=== PATIENT | female | born 1995 | race Caucasian/White ===

== ENCOUNTER 2016-09-29 17:48 | Inpatient (IN) | payer BC ==
[~2016-09-29] VITALS: Ht 177.8 cm; Wt 121.2 kg
[2016-09-29 18:37] LABS: BASOPHILS 0.2 % (0-2); EOSINOPHILS 0.1 % (0-7); HEMATOCRIT 48.4 % (36.0-48.0); HEMOGLOBIN 17.3 g/dL (12-16); IMMATURE GRANULOCYTES 0.3 % (0-5); LYMPHOCYTES 20.7 % (15-50); MCH 30.3 pg (26.0-34.0); MCHC 35.7 g/dL (31.0-37.0); MCV 84.8 fL (80.0-100.0); MONOCYTES 4.2 % (2-11); NEUTROPHILS 74.5 % (40-80); PLATELET COUNT 382 10x3/uL (130-400); RBC 5.71 10x6/uL (4.00-5.40); WBC 17.5 10x3/uL (4.8-10.8)
[2016-09-29 18:52] LABS: HCG SERUM NEGATIVE (NEGATIVE)
[2016-09-29 18:56] LABS: ALBUMIN 4.6 g/dL (3.4-5.0); ALKALINE PHOSPHATASE 63 U/L (46-116); ALT (SGPT) 38 U/L (10-68); BILIRUBIN - TOTAL 1.36 mg/dL (0.2-1.3); CALC OSMOLALITY 282 mosm/kg (275-300); CALCIUM 10.4 mg/dL (8.5-10.1); CARBON DIOXIDE 23.8 mmol/L (21.0-32.0); CHLORIDE - SERUM 101 mmol/L (98-107); CREATININE - SERUM 1.3 mg/dL (0.6-1.3); GLUCOSE 144 mg/dL (74-106); POTASSIUM - SERUM 4.4 mmol/L (3.5-5.1); PROTEIN - SERUM 8.9 g/dL (6.4-8.2); SODIUM 139 mmol/L (136-145); UREA NITROGEN 18 mg/dL (7-18); eGFR NON AFRICAN AMERICAN 55 mL/min (90-120)
[2016-09-29 19:07] LABS: CKMB 0.7 U/L (0.0-3.6); CREATINE KINASE 99 UL (21-215); MAGNESIUM - SERUM 1.8 mg/dL (1.8-2.4); TROPONIN-I < 0.017 ng/mL (0.000-0.060)
[2016-09-29 20:45] VITALS: BP 106/78
--- NOTE | 2016-09-29 20:45 | NUR ---
REC'D PT TO ROOM 2309 VIA STRETCHER, ASSISTED OVER TO BED, ALL MONITORS ESTABLISHED, CM-UCAF @ 110, PT AWAKE, ALERT, ORIENTED X 3, O2 @ 3LITERS VIA NC, RIGHT EJ WITH CARDIZEM INFUSING @ 15MG/HR, BP 105/69, PT DENIES PAIN OR SOB, MAEE, PT DENIES PAIN OR NEEDS, PPP, SR UP X 2, BED IN LOW POSITION, CALL LIGHT IN REACH.
[2016-09-29] MEDS ORDERED: METOPROLOL TART50 MG PO (20:47)
[2016-09-29 21:00] VITALS: BP 118/84
[2016-09-29 21:03] VITALS: BP 106/78; Ht 177.8 cm; Wt 121.2 kg
--- NOTE | 2016-09-29 21:15 | NUR ---
FAMILY BROUGHT TO BEDSIDE, UPDATE GIVEN AND QUESTIONS ANSWERED.
[2016-09-29 21:30] VITALS: BP 116/77
--- NOTE | 2016-09-29 21:35 | NUR ---
LEFT EJ POSITIONAL, EXTRA PILLOW PROVIDED FOR PT COMFORT AND BETTER POSITIONING.
[2016-09-29 22:00] VITALS: BP 105/72
--- NOTE | 2016-09-29 22:05 | NUR ---
22 GAUGE PLACED TO LEFT HAND BY Pricilla JOHNSON RN, RANDALL PLACED TO HAND AND LEFT EJ SALINE LOCKED.
--- NOTE | 2016-09-29 22:15 | NUR ---
PT ASSISTED UP TO VOID, PT VOIDED APPROX 650CC CONCENTRATED URINE, BACK TO BED WITH MINIMAL ASSIST, ICE WATER PROVIDED ON REQUEST, PT DENIES FURHTER NEEDS, CALL LIGHT IN REACH.
[2016-09-29 23:00] VITALS: BP 100/69
[2016-09-30] VITALS (11 sets, daily range): BP systolic 95–123; BP diastolic 59–82
--- NOTE | 2016-09-30 00:15 | NUR ---
CM-SR WITH BBB NOTED, HR 69, CARDIZEM DECREASED TO 10MG/HR, BP STABLE, PT DENIES PAIN OR NEEDS, WILL CONT TO MONITOR FOR CHANGES.
--- NOTE | 2016-09-30 02:00 | NUR ---
NO CHANGES IN STATUS AT THIS TIME.
[2016-09-30 02:53] LABS: TROPONIN-I 0.02 ng/mL (0.000-0.060)
--- NOTE | 2016-09-30 04:00 | NUR ---
LAB AT BS FOR AM LAB DRAW, BP CUFF ADJUSTED FOR PT COMFORT, PT DENIES PAIN OR OTHER NEEDS.
--- NOTE | 2016-09-30 06:00 | NUR ---
NO VISITORS IN AT THIS TIME, PT RESTING IN BED EYES CLOSED, RESP EVEN AND UNLABORED, VSS.
--- NOTE | 2016-09-30 07:00 | NUR ---
PT LYING IN BED WITH 0 S/SX OF DISTRESS/DISCOMFORT NOTED. DENIES PAIN/PALPATATIONS AT THIS TIME. 98.2 75 SINUS RYTHUM 99% O2 AT 3L VIA NC 17 122/82. O2 DECREASED TO 1L VIA NC. TOLERATING WELL. RADAL PULSES PALPABLE AND EQUAL. STEFANI PEDIS PULSES PALPABLE EQUAL AND WEAK. CAP REFILL <3. REMAINS ON CARDIZEM GTT 10MG. CALL LIGHT IN REACH. WILL CONT POC.
--- NOTE | 2016-09-30 07:30 | NUR ---
METER MAKER IN ROOM.
--- NOTE | 2016-09-30 07:52 | NUR ---
[employer] ADMINISTRATOR IN ROOM DRAWING TROPONIN
--- NOTE | 2016-09-30 07:57 | NUR ---
MEAL TRAY BROUGHT TO ROOM. PT HAS NOT ATE YET. "IM GOING TO GO BACK TO SLEEP. I HARDLY GOT ANY LAST NIGHT" TRAY LEFT AT BED SIDE. LIGHTS TURNED OFF AND DOOR CLOSED TO REDUCE NOISE. NO S/SX OF DISTRESS/DISCOMFORT NOTED. BREATHING NORMAL AND UNLABORED. CALL LIGHT IN REACH.
[2016-09-30 08:42] LABS: TROPONIN-I 0.025 ng/mL (0.000-0.060)
--- NOTE | 2016-09-30 08:57 | NUR ---
TOPONIN LVL 0.025
--- NOTE | 2016-09-30 09:24 | NUR ---
IN ROOM WITH FAMILY AT BED SIDE.
--- NOTE | 2016-09-30 09:30 | NUR ---
NEW ORDRES TO RESUME HOME MEDICATION AND TO DC CARDIZEM.
--- NOTE | 2016-09-30 09:36 | NUR ---
BUS MATRON IN ROOM.
--- NOTE | 2016-09-30 09:49 | NUR ---
HAS NEW ORDRES TO DC HOME. RESUME HOME MEDICATION, (LOPRESSOR 37.5 BID) AND TO DC RANDALL MALHOTRA. RANDALL MALHOTRA DC. FAMILY AT BED SIDE.
--- NOTE | 2016-09-30 10:15 | NUR ---
METOPROLOL 37.5MG GIVEN PO. O2 REMOVED. O2 SAT 98%. DENIES SOB. BREATHING NORMAL AND UNLABORED. BOY FRIEND AT BED SIDE. DENIES PAIN AND PALPITATION. NORMAL SINUS AT 75-80.
--- NOTE | 2016-09-30 10:31 | NUR ---
RIGHT EJ REMOVED AND PRESSURE HELD FOR 5 MINUTES. CATHETER TIP INTACT. NO REDDNESS/EDEMA AND DENIES PAIN. CALL LIGHT IN REACH. WILL CONT POC.
--- NOTE | 2016-09-30 11:55 | NUR ---
DISCHARGE INSTRUCTIONS GIVEN VERBALLY. GAVE WRITTEN HANDOUT OF DC INSTRUCTIONS. VERBALLY ACKNOLEDGED UNDERSTANDING. 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 LEFT PIV DC'D WITH CATHETER ATTACHED. GAUZE BANDAGE APPLIED. PT ALERT AND ORIENTED X4. 0 S/SX OF DISTRESS/DISCOMFORT NOTED. BREATHING NORMAL AND UNLABORED. LEFT UNIT VIA W/C ACCOMPANIED BY BOYFRIEND. LEFT HOSPITAL VIA PERSONAL VEHICLE DRIVEN BY FAMILY MEMBER.
== END 2016-09-30 12:20 | disposition home or self-care (01) | DRG 310 ==
LOC: D.ER 17:48 → D.ICU 20:21
PROVIDERS: Family Medicine; ADMIT Internal Medicine Cardiovascular Disease
DX: I48.91 Unspecified atrial fibrillation (principal); I42.2 Other hypertrophic cardiomyopathy; E86.0 Dehydration